=== PATIENT | female | born 1945 | race Caucasian/White ===

== ENCOUNTER 2018-11-22 08:35 | Inpatient (IN) ==
--- NOTE | 2018-10-25 15:59 | PAT Medication Instructions ---
Medication Instructions Date of Service October 25, 2018 Home Medications cholecalciferol (vitamin D3) 2,000 unit PO DAILY hydrocodone-acetaminophen [Vicodin] 1 - 2 tab PO UD PRN ibuprofen [Motrin IB] 400 mg PO UD PRN levothyroxine [Synthroid] 25 mcg PO QAM multivitamin [Multiple Vitamins] 1 tab PO DAILY omeprazole magnesium [Prilosec OTC] 20 mg PO UD PRN rosuvastatin [Crestor] 5 mg PO QAM ASK your surgeon for instructions ibuprofen [Motrin IB] 400 mg PO UD PRN DO NOT take the morning of surgery cholecalciferol (vitamin D3) 2,000 unit PO DAILY multivitamin [Multiple Vitamins] 1 tab PO DAILY Take morning of surgery With a small sip of water, OTHERWISE NOTHING TO EAT OR DRINK AFTER MIDNIGHT: hydrocodone-acetaminophen [Vicodin] 1 - 2 tab PO UD PRN (okay to take up to 4 hours prior to surgery if needed) levothyroxine [Synthroid] 25 mcg PO QAM omeprazole magnesium [Prilosec OTC] 20 mg PO UD PRN (if needed) rosuvastatin [Crestor] 5 mg PO QAM Other Notes If you have any questions please call us at [phone] or [phone] or [phone] or [phone]
--- NOTE | 2018-10-28 13:18 | Anesthesiology Consultation ---
Date of Service October 28, 2018 Assessment & Plan (1) Encounter for pre-operative examination: Plan: - PCP= 3/4= "proceed with upcoming surgery, pt is medically stable." Chart Review Chart Review: Acceptable Risk for Surgery and Patient seen in Pre Admission Testing Teaching & Discussion Pre-Anesthesia Teaching/Discussion Notes: Instructed NPO after midnight before surgery,except medications with 15 cc of water. Medication instructions provided according to the PAT guidelines. History Surgery Operation Date: 11/22/18 11:25 Proposed Procedures p Right Total Knee Arthroplasty - Eric Schumacher MD Height/Weight Height: 5 ft 4 in Weight: 69.6 kg Allergies Allergy/AdvReac Type Severity Reaction Status Date / Time cephalexin [From Keflex] Allergy Unknown Rash Verified 10/09/18 13:50 Medications Home Medications Medication Instructions Recorded Confirmed Last Taken cholecalciferol (vitamin D3) 2,000 unit PO DAILY 10/09/18 10/09/18 Unknown [Vitamin D3] hydrocodone-acetaminophen [Vicodin] 1 - 2 tab PO UD PRN 10/09/18 10/09/18 Unknown ibuprofen [Motrin IB] 400 mg PO UD PRN 10/09/18 10/09/18 Unknown levothyroxine [Synthroid] 25 mcg PO QAM 10/09/18 10/09/18 10/09/18 multivitamin [Multiple Vitamins] 1 tab PO DAILY 10/09/18 10/09/18 Unknown omeprazole magnesium [Prilosec OTC] 20 mg PO UD PRN 10/09/18 10/09/18 Unknown rosuvastatin [Crestor] 5 mg PO QAM 10/09/18 10/09/18 10/09/18 Past Medical History Medical History Heartburn DIET CONTROLLED; RARE PPI USE History of high blood pressure HX MEDS DISCONTINUED 2/2 GOOD HOME READING BP CONTROL; PCP MONITORING Hyperlipidemia Hypothyroidism Osteoarthritis Past Family History Family History Father Family history of prostate cancer Past Surgical History Surgical History History of appendectomy WITH REMOVAL OF FALLOP[place] TUBES History of cholecystectomy History of hysterectomy + OVARIES REMOVED Past Anesthesia History No Hx of Anesthesia Complications (EXCEPT PONV) and No Family Hx of Anesthesia Complications History of PONV Yes Motion Sickness Screening History of Motion Sickness: Yes (OCCASIONAL) Social History Smoking Status: Never smoker Do You Dip or Chew Tobacco: No Hx Alcohol Use: Yes (SUMMER) alcohol intake frequency: holidays/special occasions only Hx Substance Use: No substance use type: does not use Exercise / Class Metabolic Activity II 4-5 Yardwork/Stairs/Walk up hill Review of Systems Patient denies chest pain, shortness of breath, dyspnea on exertion, cough, wheezing, palpitations. Physical Exam Vital Signs VITALS BP 140/78 (BP 134/89 at PCP preop evaluation on 11/04) P 97 TEMP 98.5 SP02 97%RA RESP 18 PHYSICAL Full neck and c-spine range of motion. Full TMJ range of motion. TMD 3 finger breaths Mallampati Score 2 Dentition: upper front left capped tooth Lungs: clear throughout to auscultation Cardiac: regular rate and rhythm, no murmurs noted Spine: normal Carotid arteries: negative bruit Extremities: no edema Testing Electrocardiogram Date: 10/28/18 Findings: + NSR @ (79) Chest X-Ray Date: 10/28/18 Findings: + NAD Laboratory Results 10/28/18 13:34 10/28/18 13:34 Blood Type O Positive 10/28/18 13:34 Antibody Screen NEGATIVE 10/28/18 13:34 PT 10.8 Seconds (9.0-12.0) 10/28/18 13:34 INR 1.1 (0.9-1.1) 10/28/18 13:34 APTT 25.8 Seconds (21.0-31.0) 10/28/18 13:34 Hemoglobin A1c 5.6 % (4.5-5.6) 10/28/18 13:34 Urine Color Yellow 10/28/18 13:34 Urine Appearance Clear (Clear) 10/28/18 13:34 Urine pH 5.5 (4.5-7.5) 10/28/18 13:34 Ur Specific [place] 1.012 (1.000-1.030) 10/28/18 13:34 Urine Protein Negative (Negative) 10/28/18 13:34 Urine Glucose (UA) Negative (Negative) 10/28/18 13:34 Urine Ketones Negative (Negative) 10/28/18 13:34 Urine Nitrite Negative (Negative) 10/28/18 13:34 Ur Leukocyte Esterase Negative (Negative) 10/28/18 13:34 10/28/18 13:34 Urine Culture - Final Urine,Clean Catch Three types of organisms present, all low counts probable skin addie. No further identifications or sensitivities to follow. Glucose 165 on preop labs --> HGA1C 5.6%.*
--- NOTE | 2018-10-28 14:01 | XRay Report ---
XR chest Pre-admission PA/Lat CLINICAL HISTORY: pat preoperative evaluation COMPARISON STUDY: No previous studies for comparison. FINDINGS: The bones soft tissues and hemidiaphragms are normal. The cardiomediastinal silhouette is n ormal. The lungs are clear. The pulmonary vasculature is normal. IMPRESSION: Negative chest. The above report was generated using voice recognition software. It may contain grammatical, syntax or spelling errors. Electronically signed by: Pradip Hudson M.D. 10/28/2018 1:59 PM
[2018-10-28 14:41] LABS: Basophils # (auto) 0.02 K/uL (0-0.2); Basophils % (auto) 0.5 %; Eosinophils # (auto) 0.11 K/uL (0-0.5); Eosinophils % (auto) 2.5 %; Hemoglobin 14.8 g/dL (12.0-16.0); Immature Granulocytes # (auto) 0.01 K/uL (0.00-0.02); Immature Granulocytes % (auto) 0.2 %; Lymphocytes # (auto) 1.47 K/uL (1.2-3.4); Lymphocytes % (auto) 33.6 %; Mean Corpuscular Hgb Conc 34.4 g/dL (32-36); Mean Corpuscular Volume 90.5 fL (80-100); Mean Platelet Volume 9.9 fL (7.4-10.4); Monocytes % (auto) 9.1 %; Neutrophils # (auto) 2.37 K/uL (1.4-6.5); Neutrophils % (auto) 54.1 %; Platelet Count 261 K/uL (130-400); RDW Coefficient of Variation 12.3 % (11.5-14.5); RDW Standard Deviation 40.7 fL (36.4-46.3); Red Blood Count 4.75 M/uL (4.2-5.4); White Blood Count 4.38 K/uL (4.8-10.8)
[2018-10-28 14:50] LABS: Estimated Average Glucose 114 mg/dl; Hemoglobin A1C 5.6 % (4.5-5.6)
[2018-10-28 14:51] LABS: INR 1.1 (0.9-1.1); Partial Thromboplastin Time 25.8 Seconds (21.0-31.0); Prothrombin Time 10.8 Seconds (9.0-12.0)
[2018-10-28 14:55] LABS: Appearance Urine Clear (Clear); Bilirubin Urine Negative (Negative); Blood Urine Negative (Negative); Color Urine Yellow; Glucose Urine UA Negative (Negative); Ketones Urine Negative (Negative); Leukocyte Esterase Urine Negative (Negative); Nitrite Urine Negative (Negative); Protein Urine Negative (Negative); Specific Gravity Urine 1.012 (1.000-1.030); Urobilinogen Urine Negative (Negative); pH Urine 5.5 (4.5-7.5)
[2018-10-28 15:04] LABS: Albumin Level 3.7 gm/dl (3.4-5.0); BUN Creatinine Ratio 10.2 (10-20); Calcium 8.9 mg/dl (8.5-10.1); Creatinine Clr Calc Pharmacy 47.1 ml/min; Est GFR (African American) 61.9; Est GFR (Non-African American) 53.4; Potassium 3.6 mmol/L (3.5-5.1)
--- NOTE | 2018-11-17 19:03 | History & Physical Report ---
Date of Service November 17, 2018 Assessment & Plan (1) Osteoarthritis of right knee: Patient has failed conservative measures. Treatment options were discussed and they would like to proceed with scheduled surgery. Risks, benefits and alternatives to surgery including but not limited to infection, DVT, pain, stiffness, need for revision surgery, damage to blood vessels, damage to nerves, PE, , were discussed with the patient and they wish to proceed. Plan will be for right total knee arthroplasty. All questions were answered. Plan will be for patient to participate in outpatient physical therapy upon discharge. We will do aspirin 81mg BID x 30 days for DVT prophylaxis post operatively. Surgery is scheduled for 11/22/18. History of Present Illness Chief Complaint: Right knee pain Primary Care Provider: Jeffrey Combs 73 year old female with PMHx significant for high cholesterol and hypothyroidism presents with complaint of chronic right knee pain. She has failed conservative measures including cortisone injection, PT, and NSAIDs. She is having difficulty going about her normal daily activities. She would like to proceed with right knee replacement. Patient denies headaches, sweats, fevers, chills, double vision, blurred vision, cough, sore throat, dysphagia, chest pain, sob, wheezing, n/v/d/c, numbness, tingling, fatigue, urinary symptoms, mood disorders. ROS positive for right knee pain and stiffness. Allergies Allergy/AdvReac Type Severity Reaction Status Date / Time cephalexin [From Keflex] Allergy Unknown Rash Verified 10/09/18 13:50 Home Medications Home Medications Medication Instructions Recorded Confirmed Type cholecalciferol (vitamin D3) 2,000 unit PO DAILY 10/09/18 10/09/18 History [Vitamin D3] hydrocodone-acetaminophen [Vicodin] 1 - 2 tab PO UD PRN 10/09/18 10/09/18 History ibuprofen [Motrin IB] 400 mg PO UD PRN 10/09/18 10/09/18 History levothyroxine [Synthroid] 25 mcg PO QAM 10/09/18 10/09/18 History multivitamin [Multiple Vitamins] 1 tab PO DAILY 10/09/18 10/09/18 History omeprazole magnesium [Prilosec OTC] 20 mg PO UD PRN 10/09/18 10/09/18 History rosuvastatin [Crestor] 5 mg PO QAM 10/09/18 10/09/18 History Past Med/Surg History Medical History Heartburn DIET CONTROLLED; RARE PPI USE History of high blood pressure HX MEDS DISCONTINUED 2/2 GOOD HOME READING BP CONTROL; PCP MONITORING Hyperlipidemia Hypothyroidism Osteoarthritis Surgical History History of appendectomy WITH REMOVAL OF FALLOPIAN TUBES History of cholecystectomy History of hysterectomy + OVARIES REMOVED Family History Father Family history of prostate cancer Social History Preferred Language: Kenyan Communication Ability: Effective 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 Beliefs That Will Affect Care: None Current Living Situation: Spouse Other Information That Helps Us Care for You: No Feels Safe at Home: Yes Smoking Status: Never smoker Hx Alcohol Use: Yes (SUMMER) Hx Substance Use: No Review of Systems All systems reviewed & are unremarkable except as noted in HPI & below Physical Exam Vital Signs (Past 24 Hours): 5"4, 152lbs, BP 126/74 Constitutional: well developed and well nourished; no acute distress Eyes: PERRL, conjunctivae normal, anicteric sclerae ENMT: external ear and nose normal, oropharynx normal Neck: trachea midline, no thyromegaly Respiratory: normal respiratory effort, lungs clear to auscultation Cardiovascular: RRR, no murmur, no edema Musculoskeletal: Right knee-medial joint line tenderness, ROM 0-130 degrees with crepitus, stable to valgus and varus stress tests. Skin: no rashes, warm and dry Neurologic: patellar DTR's 2+ bilat, sensation intact Psychiatric: A+Ox3, euthymic affect Results & Data Laboratory Results Lab Results 10/28/18 10/28/18 10/28/18 Range/Units 13:34 13:34 13:34 WBC 4.38 L (4.8-10.8) K/uL RBC 4.75 (4.2-5.4) M/uL Hgb 14.8 (12.0-16.0) g/dL Hct 43.0 (37-47) % MCV 90.5 (80-100) fL MCH 31.2 (25-34) pg MCHC 34.4 (32-36) g/dL RDW Std Deviation 40.7 (36.4-46.3) fL RDW Coeff of Rowdy 12.3 (11.5-14.5) % Plt Count 261 (130-400) K/uL MPV 9.9 (7.4-10.4) fL Immature Gran % (Auto) 0.2 % Neut % (Auto) 54.1 % Lymph % (Auto) 33.6 % [place] % (Auto) 9.1 % Eos % (Auto) 2.5 % Baso % (Auto) 0.5 % Immature Gran # (Auto) 0.01 (0.00-0.02) K/uL Neut # (Auto) 2.37 (1.4-6.5) K/uL Lymph # (Auto) 1.47 (1.2-3.4) K/uL [place] # (Auto) 0.40 (0.11-0.59) K/uL Eos # (Auto) 0.11 (0-0.5) K/uL Baso # (Auto) 0.02 (0-0.2) K/uL PT 10.8 (9.0-12.0) Seconds INR 1.1 (0.9-1.1) APTT 25.8 (21.0-31.0) Seconds PTT Ratio 1.0 Sodium (136-145) mmol/L Potassium (3.5-5.1) mmol/L Chloride (98-107) mmol/L Carbon Dioxide (21-32) mmol/L Anion Gap (3-11) BUN (7-18) mg/dl Creatinine (0.6-1.2) mg/dl Est Cr Clr Drug Dosing ml/min Est GFR ( Amer) Est GFR (Non-Af Amer) BUN/Creatinine Ratio (10-20) Glucose (70-99) mg/dl Estimat Average Glucose mg/dl Hemoglobin A1c (4.5-5.6) % Calcium (8.5-10.1) mg/dl Albumin (3.4-5.0) gm/dl Urine Color Yellow Urine Appearance Clear (Clear) Urine pH 5.5 (4.5-7.5) Ur Specific [place] 1.012 (1.000-1.030) Urine Protein Negative (Negative) Urine Glucose (UA) Negative (Negative) Urine Ketones Negative (Negative) Urine Blood Negative (Negative) Urine Nitrite Negative (Negative) Urine Bilirubin Negative (Negative) Urine Urobilinogen Negative (Negative) Ur Leukocyte Esterase Negative (Negative) Blood Type Antibody Screen 10/28/18 10/28/18 10/28/18 Range/Units 13:34 13:34 13:34 WBC (4.8-10.8) K/uL RBC (4.2-5.4) M/uL Hgb (12.0-16.0) g/dL Hct (37-47) % MCV (80-100) fL MCH (25-34) pg MCHC (32-36) g/dL RDW Std Deviation (36.4-46.3) fL RDW Coeff of Rowdy (11.5-14.5) % Plt Count (130-400) K/uL MPV (7.4-10.4) fL Immature Gran % (Auto) % Neut % (Auto) % Lymph % (Auto) % [place] % (Auto) % Eos % (Auto) % Baso % (Auto) % Immature Gran # (Auto) (0.00-0.02) K/uL Neut # (Auto) (1.4-6.5) K/uL Lymph # (Auto) (1.2-3.4) K/uL [place] # (Auto) (0.11-0.59) K/uL Eos # (Auto) (0-0.5) K/uL Baso # (Auto) (0-0.2) K/uL PT (9.0-12.0) Seconds INR (0.9-1.1) APTT (21.0-31.0) Seconds PTT Ratio Sodium 140 (136-145) mmol/L Potassium 3.6 (3.5-5.1) mmol/L Chloride 107 (98-107) mmol/L Carbon Dioxide 24 (21-32) mmol/L Anion Gap 9.0 (3-11) BUN 11 (7-18) mg/dl Creatinine 1.05 (0.6-1.2) mg/dl Est Cr Clr Drug Dosing 47.1 ml/min Est GFR ( Amer) 61.9 Est GFR (Non-Af Amer) 53.4 BUN/Creatinine Ratio 10.2 (10-20) Glucose 165 H (70-99) mg/dl Estimat Average Glucose 114 mg/dl Hemoglobin A1c 5.6 (4.5-5.6) % Calcium 8.9 (8.5-10.1) mg/dl Albumin 3.7 (3.4-5.0) gm/dl Urine Color Urine Appearance (Clear) Urine pH (4.5-7.5) Ur Specific [place] (1.000-1.030) Urine Protein (Negative) Urine Glucose (UA) (Negative) Urine Ketones (Negative) Urine Blood (Negative) Urine Nitrite (Negative) Urine Bilirubin (Negative) Urine Urobilinogen (Negative) Ur Leukocyte Esterase (Negative) Blood Type O Positive Antibody Screen NEGATIVE Diagnostic Findings Right [id number] medial compartment with periarticular osteophtye formation.
[~2018-11-22 08:35] MED LIST: ACETAMINOPHEN 500 MG TAB PO SCH; BUPIVACAINE 0.5 % 5 MG/1 ML PF 10ML VIAL ONE; CEFAZOLIN 2000MG 2,000 MG/15 ML SYR IV SCH; CeleBREX 200 MG CAP PO SCH; FAMOTIDINE 20 MG TAB PO SCH; LR 500ML BOLUS, THEN 15ML/HR IV SCH; METOCLOPRAMIDE HCL 10 MG TABLET PO SCH; ROPIVACAINE 0.5% 5 MG/ML 30 ML VIAL ONE; ROPIVACAINE 0.5% HCL/PF 150 MG, BUPIVACAINE 0.5% MPF 30 ML, EPINEPHrine 30MG/30ML (OR U... INFIL SCH; TRANEXAMIC ACID 1,000 MG **IV Intra-op IV SCH; TRANEXAMIC ACID 1,000 MG **IV Pre-op IV SCH; dexAMETHasone 4 MG TAB PO SCH
--- NOTE | 2018-11-22 10:02 | History & Physical Bridge Note ---
Date of Service November 22, 2018 History & Physical Bridge Note I have examined the patient, reviewed the History & Physical and in the interval since the performance of the History & Physical I have noted the following changes of clinical significance: no changes noted
[2018-11-22] MEDS ORDERED: ATROPINE SULFATE 0.1 MG/ML 10ML SYR IV PRN (10:09)
[2018-11-22] MEDS ORDERED: ePHEDrine sulfate 50 MG/ML AMP IV PRN (10:09)
[2018-11-22] MEDS ORDERED: PROPOFOL IV EMULSION 10 MG/ML 20 ML VIAL IV ONE (10:33)
[2018-11-22] MEDS ORDERED: MIDAZOLAM HCL 1 MG/ML 2ML VIAL ONE (10:33)
[2018-11-22] MEDS ORDERED: fentaNYL citrate 100 MCG/2 ML VIAL ONE (10:33)
[2018-11-22] MEDS ORDERED: VANCOMYCIN CONSULT ACTIVE PRN ×2 (10:36→13:58)
[2018-11-22] MEDS ORDERED: VANCOMYCIN HCL 1 GM/270 ML BAG ONE (10:38)
[2018-11-22] MEDS ORDERED: BACITRACIN INJ 50,000 UNIT VIAL ONE (11:54)
[2018-11-22] MEDS ORDERED: ORTHO JOINT ANESTHETIC ONE (11:54)
[2018-11-22] MEDS ORDERED: POVIDONE-IODINE OP SOLN 30 ML BTL ONE (11:54)
--- NOTE | 2018-11-22 13:14 | Operative Report ---
Post Operative Report Pre & Post Diagnosis Operation Date: 11/22/18 11:20 Pre-Op Diagnosis: Right knee osteoarthritis Post-Op Diagnosis: Right knee osteoarthritis Procedure Operation Date: 11/22/18 11:20 Actual Procedures p Right Total Knee Arthroplasty(Right) - Eric Schumacher MD Surgeon Eric Schumacher MD [employer] Commerce Developer Oracio Martinez PA-C Estimated Blood Loss 20 Findings Consistent with Post-Op Diagnosis Specimens Bone and tissue Drains 2 Hemovac Anesthesia Type Spinal MAC Complications none Disposition Accompanied Patient To Recovery: No Disposition: Recovery Room Indications Patient is a 73-year-old female long-standing arthritis of the right knee. She has significant joint space narrowing the medial compartment is near [id number]. She is failed conservative measures including injection, anti- inflammatories, rehab. She was to proceed with a right total knee arthroplasty. Description of Procedure Risks benefits and alternatives of surgery including but not limited to infection, DVT, pain, stiffness, need for surgery, damage to blood vessels, damage to nerves or risks of anesthesia were discussed with the patient and they wished to proceed. The patient was identified and the laterality was confirmed and marked. They received a preoperative antibiotic as well as a spinal anesthetic and an abductor canal block. A well-padded tourniquet was applied and then the limb was prepped and draped in standard manner with ChloraPrep. The limb was exsanguinated and the tourniquet was inflated. I made a standard anterior incision. I sharply incised the skin then utilized Bovie electrocautery to achieve hemostasis. I made a medial parapatellar arthrotomy and mobilized the patella laterally. I then excised the anterior horns of the medial and lateral meniscus as well as the infrapatellar fat pad. I elevated a portion of the MCL off of the tibia. I then pinned into place a patient-matched distal femoral cutting guide and made my distal femoral resection. I then pinned into place the 5 in 1 femoral cutting guide. I made my anterior, posterior and chamfer cuts. I then excised the cruciates an d the remaining portions of the menisci. I then pinned into place a patient- matched tibial cutting guide and made my tibial resection. I then pinned into place the tibial plate a utilizing alignment mary to confirm rotation. I then cut for the post. Utilizing a lamina progressive care unit registered nurse and I then removed posterior osteophytes off the femur. I then placed a trial femur into position and cut for the trochlear component. I then sequentially trialed to size the polyethylene until there was good soft tissue balancing and range of motion. I then prepared the patella with a freehand cut utilizing sagittal saw. I sized and drilled for the patella. There was good tracking to the patella no lateral release was needed. All the trial components were removed. The deep tissues were anesthetized with an ortho mix solution. Then with Simplex HV with gentamicin cement, I cemented my definitive components. Definitive components, Hart and Nephew Saraney 2: Femur 5 Tibia 3 Poly 9 Patella 29 oval A betadine soak was performed. A deep drain was placed. The arthrotomy was closed with interrupted #1 Vicryl suture subcutaneous tissue was closed with interrupted 2-0 Vicryl suture. The skin was closed with with teresita. An Acticoat and Jany dressing were placed. Sterile dressings were applied. All needle and sponge counts were correct at the end of the procedure patient was transferred to the PACU in stable condition without apparent complication. The PA-C was necessary for assistance with procedure for assistance in positioning, prepping, draping, retraction and closure. I attest to the content of the Intraoperative Record and any orders documented therein. Any exceptions are noted below.
[2018-11-22] MEDS ORDERED: MAGNESIUM HYDROXIDE SUSP 30 ML UDC PO PRN (13:58)
[2018-11-22] MEDS ORDERED: NALOXONE HCL 0.4 MG/1 ML VIAL/CARP IV PRN (13:58)
[2018-11-22] MEDS ORDERED: ONDANSETRON INJ 2 MG/ML 2 ML VIAL IV PRN (13:58)
[2018-11-22] MEDS ORDERED: BISACODYL 10 MG SUPP PR PRN (13:58)
--- NOTE | 2018-11-22 14:20 | Anesthesiology Progress Note ---
Date of Service November 22, 2018 Anesthesia Post Procedure Vital Signs Vital Signs: Temp Pulse Pulse Resp BP Pulse Ox 11/22/18 14:15 87 18 120/75 93 11/22/18 14:05 85 20 111/76 99 11/22/18 13:56 37.3 C 90 15 124/77 99 11/22/18 11:56 74 117/71 100 11/22/18 11:53 73 122/74 100 11/22/18 08:58 36.9 C 85 18 163/103 H 95 Notes Mental Status: alert / awake / arousable and participated in evaluation Nausea / Vomiting: adequately controlled Pain: adequately controlled Airway Patency, RR, SpO2: stable & adequate BP & HR: stable & adequate Hydration State: stable & adequate Neuraxial Anesthesia: was administered and sensory block is resolving Anesthetic Complications: no major complications apparent
--- NOTE | 2018-11-22 14:37 | XRay Report ---
XR knee RT 2V routine CLINICAL HISTORY: Surgical Post Op COMPARISON: None. DISCUSSION: Anatomic alignment post total right knee arthroplasty. Good contact between prosthetic an d underlying bone. Expected soft tissue postoperative change. IMPRESSION: Anatomic alignment post total right knee arthroplasty. The above report was generated using voice recognition software. It may contain grammatical, syntax or spelling errors. Electronically signed by: Pradip Hudson M.D. 11/22/2018 2:35 PM
[2018-11-22] MEDS ORDERED: SODIUM CHLORIDE 0.9% 1000ML 1,000 ML IV SCH (15:00)
[2018-11-22] MEDS: ACETAMINOPHEN 500 MG TAB PO SCH ×2 (15:54→20:51)
[2018-11-22] MEDS: OXYCODONE HCL IR 5 MG TAB (IMMEDIATE RELEASE) PO PRN ×2 (18:37→23:57)
[2018-11-22] MEDS: DOCUSATE SODIUM 100 MG CAP PO SCH (20:51)
[2018-11-22] MEDS: ASPIRIN 81 MG ECTAB PO SCH (20:51)
[2018-11-22] MEDS: CeleBREX 200 MG CAP PO SCH (20:51)
[2018-11-22] MEDS: SENNA 8.6 MG TAB PO SCH (20:51)
[2018-11-22] MEDS: VANCOMYCIN HCL 1,000 MG in SODIUM CHLORIDE 0.9% 250 ML IV SCH (21:31)
[2018-11-23] MEDS ORDERED: VANCOMYCIN HCL 1,000 MG/270 ML BAG IV SCH (06:00)
[2018-11-23] MEDS: METOCLOPRAMIDE HCL INJ 5 MG/ML 2 ML VIAL IV PRN ×2 (06:41→12:45)
[2018-11-23 06:57] LABS: Hematocrit (blood only) 36.9 % (37-47); Mean Corpuscular Hgb Conc 35.2 g/dL (32-36); Mean Corpuscular Volume 89.3 fL (80-100); Mean Platelet Volume 9.6 fL (7.4-10.4); Platelet Count 227 K/uL (130-400); RDW Coefficient of Variation 12.4 % (11.5-14.5); RDW Standard Deviation 39.8 fL (36.4-46.3); Red Blood Count 4.13 M/uL (4.2-5.4); White Blood Count 15.53 K/uL (4.8-10.8)
[2018-11-23] MEDS: ACETAMINOPHEN 500 MG TAB PO SCH ×3 (07:16→20:34)
[2018-11-23] MEDS: LEVOTHYROXINE SODIUM 25 MCG TABLET PO SCH (07:17)
[2018-11-23 07:38] LABS: BUN Creatinine Ratio 21.3 (10-20); Calcium 8.5 mg/dl (8.5-10.1); Creatinine Clr Calc Pharmacy 46.4 ml/min; Est GFR (African American) 61.2; Est GFR (Non-African American) 52.8
[2018-11-23] MEDS: PANTOprazole 40 MG TAB PO PRN (08:22)
[2018-11-23] MEDS ORDERED: MULTIVITAMIN TAB PO SCH (09:00)
--- NOTE | 2018-11-23 09:13 | Orthopedic Progress Note ---
Date of Service November 23, 2018 Assessment & Plan (1) Osteoarthritis of right knee: POD #1, Right TKA PT/ OT DVT proph- ASA D/C planning- Home w HH likely tomorrow Appreciate medicine input. Subjective POd #1, Had some nausea overnight with her pain med dose, feeling better this AM. Denies sob, cp. Pain controlled well. Physical Exam Vital Signs (Past 24 Hours): Last Vital Signs Temp 36.6 C 11/23/18 07:11 Pulse 80 11/23/18 07:11 Resp 16 11/23/18 07:11 BP 121/68 11/23/18 07:11 Pulse Ox 97 11/23/18 07:11 Physical Exam: Right knee dressings c/d/i, no drainage, no calf tenderness, toes and ankle mobile, A&Ox3.
[2018-11-23] MEDS: CeleBREX 200 MG CAP PO SCH ×2 (09:29→20:34)
[2018-11-23] MEDS: ASPIRIN 81 MG ECTAB PO SCH ×2 (09:29→20:33)
[2018-11-23] MEDS: DOCUSATE SODIUM 100 MG CAP PO SCH ×2 (09:30→20:33)
[2018-11-23] MEDS: ROSUVASTATIN CALCIUM 5 MG TAB PO SCH (09:30)
[2018-11-23] MEDS: CHOLECALCIFEROL 1,000 UNITS TAB PO SCH (09:31)
[2018-11-23] MEDS: MULTIVITAMIN TAB PO SCH (09:31)
[2018-11-23] MEDS: VANCOMYCIN HCL 1,000 MG in SODIUM CHLORIDE 0.9% 250 ML IV SCH (10:30)
--- NOTE | 2018-11-23 13:27 | Anesthesiology Progress Note ---
Date of Service November 23, 2018 Anesthesia Post Procedure Vital Signs Vital Signs: Temp Pulse Pulse Pulse Resp BP BP 11/23/18 10:48 36.9 C 79 16 121/71 11/23/18 07:11 36.6 C 80 16 121/68 11/23/18 03:17 36.6 C 82 14 124/73 11/22/18 23:37 36.9 C 82 14 116/71 11/22/18 17:44 37.1 C 76 16 143/82 H 11/22/18 16:45 37.1 C 77 16 127/77 11/22/18 15:46 36.8 C 74 16 122/73 11/22/18 15:24 36.5 C 75 16 125/78 11/22/18 14:45 36.7 C 79 16 124/78 11/22/18 14:26 37.5 C 87 18 114/72 11/22/18 14:15 87 18 120/75 11/22/18 14:05 85 20 111/76 11/22/18 13:56 37.3 C 90 15 124/77 Pulse Ox 11/23/18 10:48 97 11/23/18 07:11 97 11/23/18 03:17 93 11/22/18 23:37 93 11/22/18 17:44 96 11/22/18 16:45 94 11/22/18 15:46 93 11/22/18 15:24 93 11/22/18 14:45 94 11/22/18 14:26 93 11/22/18 14:15 93 11/22/18 14:05 99 11/22/18 13:56 99 Pain Intensity Right Knee: Pain Intensity: 6 Notes Mental Status: alert / awake / arousable Patient Amnestic to Procedure: Yes Nausea / Vomiting: adequately controlled Pain: adequately controlled Airway Patency, RR, SpO2: stable & adequate BP & HR: stable & adequate Hydration State: stable & adequate Neuraxial Anesthesia: was administered and sensory block resolved Anesthetic Complications: no major complications apparent and Pt Satisfied with anesthetic care
[2018-11-23] MEDS: HYDROmorphone INJ 0.5 MG/0.5 ML SYR IV PRN ×2 (14:40→20:33)
[2018-11-23] MEDS: SENNA 8.6 MG TAB PO SCH (20:34)
[2018-11-24] MEDS: METOCLOPRAMIDE HCL INJ 5 MG/ML 2 ML VIAL IV PRN ×4 (00:38→21:01)
[2018-11-24] MEDS: HYDROmorphone INJ 0.5 MG/0.5 ML SYR IV PRN ×3 (00:38→22:11)
[2018-11-24] MEDS: ACETAMINOPHEN 500 MG TAB PO SCH ×3 (05:34→21:07)
[2018-11-24] MEDS: LEVOTHYROXINE SODIUM 25 MCG TABLET PO SCH (05:34)
[2018-11-24] MEDS: CHOLECALCIFEROL 1,000 UNITS TAB PO SCH (08:23)
[2018-11-24] MEDS: MULTIVITAMIN TAB PO SCH (08:23)
[2018-11-24] MEDS: DOCUSATE SODIUM 100 MG CAP PO SCH ×2 (08:25→21:06)
[2018-11-24] MEDS: ROSUVASTATIN CALCIUM 5 MG TAB PO SCH (08:25)
--- NOTE | 2018-11-24 08:50 | Orthopedic Progress Note ---
Date of Service November 24, 2018 Assessment & Plan (1) Osteoarthritis of right knee: POD #2, Right TKA PT/ OT DVT proph- ASA D/C planning- Home w HH Appreciate medicine input. Will stop narcs and add tramadol, patient states she is tolerating the IV dilaudid with reglan. Subjective POd #2, Still having nausea becoming worse, aversion to eating at this point. Denies sob, cp. Pain controlled well. Physical Exam Vital Signs (Past 24 Hours): Last Vital Signs Temp 36.7 C 11/24/18 07:11 Pulse 76 11/24/18 07:11 Resp 16 11/24/18 07:11 BP 126/76 11/24/18 07:11 Pulse Ox 94 11/24/18 07:11 Physical Exam: VSS. Right knee wound vac in tact. No drainage, no erythema. No calf tenderness. Toes and ankle mobile, A&Ox3.
[2018-11-24] MEDS ORDERED: TRAMADOL HCL 50 MG TABLET PO PRN (08:52)
[2018-11-24] MEDS: ASPIRIN 81 MG ECTAB PO SCH ×2 (09:38→21:04)
[2018-11-24] MEDS: CeleBREX 200 MG CAP PO SCH ×2 (09:39→21:06)
[2018-11-24] MEDS: PANTOprazole 40 MG TAB PO PRN (19:26)
[2018-11-24] MEDS: SENNA 8.6 MG TAB PO SCH (21:07)
[2018-11-24] MEDS ORDERED: PROMETHAZINE HCL 25 MG in SODIUM CHLORIDE 0.9% 50 ML IV STA (22:59)
[2018-11-24] MEDS ORDERED: PROMETHAZINE HCL 25 MG TAB PO PRN (23:00)
[2018-11-25] MEDS: HYDROmorphone INJ 0.5 MG/0.5 ML SYR IV PRN (04:40)
[2018-11-25] MEDS: LEVOTHYROXINE SODIUM 25 MCG TABLET PO SCH (06:23)
[2018-11-25] MEDS: ACETAMINOPHEN 500 MG TAB PO SCH (06:23)
--- NOTE | 2018-11-25 07:28 | Orthopedic Progress Note ---
Date of Service November 25, 2018 Assessment & Plan (1) Osteoarthritis of right knee: POD #3, Right TKA PT/ OT DVT proph- ASA D/C planning- Home w HH later today if continues to feel well and PT goes well. Appreciate medicine input. Subjective POd #3, Nausea has improved significantly. Patient also had diarrhea yesterday which has resolved. Patient feels she may have had a stomach bug. Denies sob, cp. Pain controlled well. Physical Exam Vital Signs (Past 24 Hours): Last Vital Signs Temp 37.5 C 11/25/18 06:04 Pulse 101 H 11/25/18 07:06 Resp 14 11/25/18 06:04 BP 158/90 H 11/25/18 07:06 Pulse Ox 95 11/25/18 06:04 Physical Exam: Dressing/CRUZ c/d/i, no calf tenderness. Toes mobile, sensation and N/V status intact.
[2018-11-25] MEDS: CeleBREX 200 MG CAP PO SCH (07:31)
[2018-11-25] MEDS: DOCUSATE SODIUM 100 MG CAP PO SCH (07:31)
[2018-11-25] MEDS: CHOLECALCIFEROL 1,000 UNITS TAB PO SCH (07:32)
[2018-11-25] MEDS: MULTIVITAMIN TAB PO SCH (07:32)
[2018-11-25] MEDS: ROSUVASTATIN CALCIUM 5 MG TAB PO SCH (07:33)
[2018-11-25] MEDS: ASPIRIN 81 MG ECTAB PO SCH (07:33)
[2018-11-25 08:45] LABS: Hemoglobin 13.9 g/dL (12.0-16.0); Mean Corpuscular Hgb Conc 35.6 g/dL (32-36); Mean Corpuscular Volume 88.8 fL (80-100); Mean Platelet Volume 9.5 fL (7.4-10.4); Platelet Count 238 K/uL (130-400); RDW Coefficient of Variation 12.6 % (11.5-14.5); RDW Standard Deviation 40.6 fL (36.4-46.3); Red Blood Count 4.39 M/uL (4.2-5.4); White Blood Count 8.34 K/uL (4.8-10.8)
[2018-11-25 09:17] LABS: BUN Creatinine Ratio 10.2 (10-20); Calcium 9.2 mg/dl (8.5-10.1); Creatinine Clr Calc Pharmacy 53.5 ml/min; Est GFR (African American) 72.6; Est GFR (Non-African American) 62.6; Magnesium 1.7 mg/dl (1.8-2.4); Potassium 3.4 mmol/L (3.5-5.1)
[2018-11-25] MEDS ORDERED: POTASSIUM CHLORIDE 20 MEQ TABCR PO STA (09:39)
[2018-11-25] MEDS: MAGNESIUM SULFATE / D5W 1 GM/100 ML BAG IV SCH ×2 (10:02→10:03)
--- NOTE | 2018-11-25 10:06 | Hospitalist Consultation ---
Date of Consultation November 25, 2018 Assessment & Plan (1) Osteoarthritis of right knee: - S/p right TKA, POD#3. - Pain control per primary team. - PT/OT -- will be discharged with home health services today. - Asprin 81 mg BID. (2) Hyperlipidemia: - Continue Crestor as prescribed. (3) Hypertension: - H/o HTN, not currently being treated with anti-hypertensives. - BP was elevated during this admission. - Follows with PCP -- advised to follow up in 1-2 weeks. - Has blood pressure cuff at home -- will monitor. (4) Hypothyroidism: - Continue Synthroid 25 mcg daily as prescribed. - No recent TSH levels documented; can discuss with PCP. (5) CKD (chronic kidney disease) stage 3, GFR 30-59 ml/min: - Avoid nephrotoxic agents. - Was provided script for Celebrex at discharge -- will need to monitor renal function as outpatient. (6) Electrolyte abnormality: - Mag level 1.7 - ordered mag sulfate 2 gm IV. - K level 3.4 - ordered KCl 40 mEq PO. - Likely related to GI losses in setting of recent diarrhea/nausea. (7) DVT prophylaxis: - Aspirin 81 mg BID. Dispo: Will sign off. Will need to follow up with PCP in outpatient clinic. Supervising Physician Co-Signing Physician Notes PA Supervision Note: I did not personally see or examine the patient today, but I verified all macdonald points of MARCELLA Askew's assessment and plan with the following exceptions/additions: None Patient was discharged prior to me being able to see her. Of note, RN reports pt declined the Magnesium and potassium replacement MARCELLA Askew ordered prior to discharge History of Present Illness Reason for Consultation: Medical Management/Hypertension Attending Physician: Eric Schumacher MD History of Present Illness Mrs. Bardales is a 73 year old female with past medical history of GERD, HLD, Hypothroidism, Osteoarthritis who presented for a planned total right knee arthroplasty. She is POD#3 today. Pt. is feeling well overall. She did develop nausea/vomiting and diarrhea Sunday into Sunday. Symptoms are now completely resolved, tolerating PO intake. Denies chest pain, SOB, LE edema. Blood pressure has been elevated -- patient has h/o hypertension and follows with PCP for manag ement. Was previously on HCTZ, most recently 2-3 years ago. Plan for discharge with home health services this afternoon. Allergies Allergy/AdvReac Type Severity Reaction Status Date / Time cephalexin [From Keflex] Allergy Unknown Rash Verified 11/22/18 08:53 Home Medications Home Medications Medication Instructions Recorded Confirmed Type Prilosec OTC 20 mg PO UD PRN 10/09/18 11/22/18 History cholecalciferol (vitamin D3) 2,000 unit PO DAILY 10/09/18 11/22/18 History [Vitamin D3] levothyroxine [Synthroid] 25 mcg PO QAM 10/09/18 11/22/18 History multivitamin [Multiple Vitamins] 1 tab PO DAILY 10/09/18 11/22/18 History rosuvastatin [Crestor] 5 mg PO QAM 10/09/18 11/22/18 History acetaminophen [Pain Reliever] 1,000 mg PO Q8 #60 tab 11/25/18 Rx aspirin [Ecotrin Low Strength] 81 mg PO BID #60 tab 11/25/18 Rx celecoxib [Celebrex] 200 mg PO BID #60 cap 11/25/18 Rx oxycodone 5 - 10 mg PO .Q4H-6H PRN #30 cap 11/25/18 Rx MDD 6 promethazine 25 mg PO Q8H PRN #20 tab 11/25/18 Rx Patient History Medical History Heartburn DIET CONTROLLED; RARE PPI USE History of high blood pressure HX MEDS DISCONTINUED 2/2 [facility] HOME READING BP CONTROL; PCP MONITORING Hyperlipidemia Hypothyroidism Osteoarthritis Surgical History History of appendectomy WITH REMOVAL OF FALLOPIAN TUBES History of cholecystectomy History of hysterectomy + OVARIES REMOVED Family History Father Family history of prostate cancer Social History Preferred Language: Swedish Beliefs That Will Affect Care: None marital status: Current Living Situation: Spouse Other Information That Helps Us Care for You: No Feels Safe at Home: Yes Smoking Status: Never smoker Hx Alcohol Use: Yes (SUMMER) Hx Substance Use: No Review of Systems 12 point R.O.S. negative unless specified above Constitutional: no fever, no chills, no body aches, no fatigue, no weakness and no anorexia Eyes: no diplopia, not seeing flashes and no spots in vision Respiratory: no cough and no dyspnea Cardiovascular: no chest pain, no palpitations, no syncope and no edema Gastrointestinal: no abdominal pain, no nausea, no vomiting, no constipation and no diarrhea/loose stools Genitourinary (Female): no dysuria and no difficulty urinating Musculoskeletal: + joint pain (Right knee ) Integumentary: no new lesions Allergy / Immunological: no rash Physical Exam Vital Signs (Past 24 Hours): Last Vital Signs Temp 37.5 C 11/25/18 08:49 Pulse 87 11/25/18 08:49 Resp 14 11/25/18 08:49 BP 116/71 11/25/18 08:49 Pulse Ox 95 11/25/18 08:49 Physical Exam: General: Resting comfortably in no apparent distress; A&OX3 HEENT: NC/AT; PERRLA with EOMI; [place] conjunctiva, MMM. Neck: Supple and nontender Cardiac: RRR Lungs: CTA bilaterally Abdomen: Bowel normoactive X 4; Nontender to palpation Extremities: Warm. No edema present. Right knee with dressing in place. Neuro: No focal weakness Skin: No rash Results & Data Laboratory Results 11/25/18 11/25/18 Range/Units 08:25 08:25 WBC 8.34 (4.8-10.8) K/uL RBC 4.39 (4.2-5.4) M/uL Hgb 13.9 (12.0-16.0) g/dL Hct 39.0 (37-47) % MCV 88.8 (80-100) fL MCH 31.7 (25-34) pg MCHC 35.6 (32-36) g/dL RDW Std Deviation 40.6 (36.4-46.3) fL RDW Coeff of Rowdy 12.6 (11.5-14.5) % Plt Count 238 (130-400) K/uL MPV 9.5 (7.4-10.4) fL Sodium 137 (136-145) mmol/L Potassium 3.4 L (3.5-5.1) mmol/L Chloride 103 (98-107) mmol/L Carbon Dioxide 27 (21-32) mmol/L Anion Gap 6.0 (3-11) BUN 9 (7-18) mg/dl Creatinine 0.92 (0.6-1.2) mg/dl Est Cr Clr Drug Dosing 53.5 ml/min Est GFR ( Amer) 72.6 Est GFR (Non-Af Amer) 62.6 BUN/Creatinine Ratio 10.2 (10-20) Glucose 150 H (70-99) mg/dl Calcium 9.2 (8.5-10.1) mg/dl Magnesium 1.7 L (1.8-2.4) mg/dl
--- NOTE | 2018-11-26 07:15 | Discharge Summary ---
Date of Service November 27, 2018 Admission HPI Per Admitting Provider 73 year old female with PMHx significant for high cholesterol and hypothyroidism presents with complaint of chronic right knee pain. She has failed conservative measures including cortisone injection, PT, and NSAIDs. She is having difficulty going about her normal daily activities. She would like to proceed with right knee replacement. Patient denies headaches, sweats, fevers, chills, double vision, blurred vision, cough, sore throat, dysphagia, chest pain, sob, wheezing, n/v/d/c, numbness, tingling, fatigue, urinary symptoms, mood disorders. ROS positive for right knee pain and stiffness. Discharge Data Consultations 11/22/18 13:58 Consult Case Management - Discharge Planning Routine 11/24/18 23:04 Consult Hospitalist Routine Procedures Performed Operation Date: 11/22/18 11:20 Actual Procedures p Right Total Knee Arthroplasty(Right) - Eric Schumacher MD
--- NOTE | 2018-11-26 07:22 | Discharge Summary ---
Date of Service November 26, 2018 Admission HPI Per Admitting Provider 73 year old female with PMHx significant for high cholesterol and hypothyroidism presents with complaint of chronic right knee pain. She has failed conservative measures including cortisone injection, PT, and NSAIDs. She is having difficulty going about her normal daily activities. She would like to proceed with right knee replacement. Patient denies headaches, sweats, fevers, chills, double vision, blurred vision, cough, sore throat, dysphagia, chest pain, sob, wheezing, n/v/d/c, numbness, tingling, fatigue, urinary symptoms, mood disorders. ROS positive for right knee pain and stiffness. Admission Exam Per Admitting Provider Vital Signs (Past 24 Hours): 5"4, 152lbs, BP 126/74 Constitutional: well developed and well nourished; no acute distress Eyes: PERRL, conjunctivae normal, anicteric sclerae ENMT: external ear and nose normal, oropharynx normal Neck: trachea midline, no thyromegaly Respiratory: normal respiratory effort, lungs clear to auscultation Cardiovascular: RRR, no murmur, no edema Musculoskeletal: Right knee-medial joint line tenderness, ROM 0-130 degrees with crepitus, stable to valgus and varus stress tests. Skin: no rashes, warm and dry Neurologic: patellar DTR's 2+ bilat, sensation intact Psychiatric: A+Ox3, euthymic affect Principal Diagnosis Right knee osteoarthritis -Nausea, diarrhea Discharge Exam Constitutional well developed and well nourished; no acute distress Eyes PERRL, conjunctivae normal, anicteric sclerae ENMT external ear and nose normal, oropharynx normal Neck trachea midline, no thyromegaly Respiratory normal respiratory effort, lungs clear to auscultation Cardiovascular RRR, no murmur, no edema Skin no rashes, warm and dry Neurologic patellar DTR's 2+ bilat, sensation intact Psychiatric A+Ox3, euthymic affect Discharge Data Allergies Allergy/AdvReac Type Severity Reaction Status Date / Time cephalexin [From Keflex] Allergy Unknown Rash Verified 11/22/18 08:53 Consultations 11/22/18 13:58 Consult Case Management - Discharge Planning Routine 11/24/18 23:04 Consult Hospitalist Routine Procedures Performed Operation Date: 11/22/18 11:20 Actual Procedures p Right Total Knee Arthroplasty(Right) - Eric Schumacher MD Ordered Studies 11/22/18 05:00 US - OR guided needle placemen Routine Hospital Course (1) Osteoarthritis of right knee: Patient presented for same day admission following right total knee arthroplasty on 11/22/18. She tolerated procedure well. The Patient had an uneventful hospital course, other than nausea and diarrhea. Nas[place] started on POD#1 and developed several episodes of diarrhea on POD#2. The oxycodone was d/c but nausea persisted. She did get some relief from anti-nausea medications. On POD#3 her symptoms had resolved. Post-operatively, her activity was progressed and well tolerated. They participated in PT with ambulation distance of 325 feet. ROM of operative knee reached 98 degrees. Labs remained stable- lowest hemoglobin recorded: 13. Dr. Aditi Bach of medical service was consulted for medical management during admission due to her persistent nausea. Pain controlled on oral medications. Please refer to daily progress notes and PT notes for complete details. After exam on 11/25/18, patient was felt to be stable for discharge home with home health services. Patient will f/u in the office in about 2 weeks for further evaluation including x-rays and incision check, sooner if having any issues or concerns. Lab Results 10/28/18 10/28/18 10/28/18 Range/Units 13:34 13:34 13:34 WBC 4.38 L (4.8-10.8) K/uL RBC 4.75 (4.2-5.4) M/uL Hgb 14.8 (12.0-16.0) g/dL Hct 43.0 (37-47) % MCV 90.5 (80-100) fL MCH 31.2 (25-34) pg MCHC 34.4 (32-36) g/dL RDW Std Deviation 40.7 (36.4-46.3) fL RDW Coeff of Rowdy 12.3 (11.5-14.5) % Plt Count 261 (130-400) K/uL MPV 9.9 (7.4-10.4) fL Immature Gran % (Auto) 0.2 % Neut % (Auto) 54.1 % Lymph % (Auto) 33.6 % [place] % (Auto) 9.1 % Eos % (Auto) 2.5 % Baso % (Auto) 0.5 % Immature Gran # (Auto) 0.01 (0.00-0.02) K/uL Neut # (Auto) 2.37 (1.4-6.5) K/uL Lymph # (Auto) 1.47 (1.2-3.4) K/uL [place] # (Auto) 0.40 (0.11-0.59) K/uL Eos # (Auto) 0.11 (0-0.5) K/uL Baso # (Auto) 0.02 (0-0.2) K/uL PT 10.8 (9.0-12.0) Seconds INR 1.1 (0.9-1.1) APTT 25.8 (21.0-31.0) Seconds PTT Ratio 1.0 Sodium (136-145) mmol/L Potassium (3.5-5.1) mmol/L Chloride (98-107) mmol/L Carbon Dioxide (21-32) mmol/L Anion Gap (3-11) BUN (7-18) mg/dl Creatinine (0.6-1.2) mg/dl Est Cr Clr Drug Dosing ml/min Est GFR ( Amer) Est GFR (Non-Af Amer) BUN/Creatinine Ratio (10-20) Glucose (70-99) mg/dl Estimat Average Glucose mg/dl Hemoglobin A1c (4.5-5.6) % Calcium (8.5-10.1) mg/dl Magnesium (1.8-2.4) mg/dl Albumin (3.4-5.0) gm/dl Urine Color Yellow Urine Appearance Clear (Clear) Urine pH 5.5 (4.5-7.5) Ur Specific [place] 1.012 (1.000-1.030) Urine Protein Negative (Negative) Urine Glucose (UA) Negative (Negative) Urine Ketones Negative (Negative) Urine Blood Negative (Negative) Urine Nitrite Negative (Negative) Urine Bilirubin Negative (Negative) Urine Urobilinogen Negative (Negative) Ur Leukocyte Esterase Negative (Negative) Blood Type Antibody Screen 10/28/18 10/28/18 10/28/18 Range/Units 13:34 13:34 13:34 WBC (4.8-10.8) K/uL RBC (4.2-5.4) M/uL Hgb (12.0-16.0) g/dL Hct (37-47) % MCV (80-100) fL MCH (25-34) pg MCHC (32-36) g/dL RDW Std Deviation (36.4-46.3) fL RDW Coeff of Rowdy (11.5-14.5) % Plt Count (130-400) K/uL MPV (7.4-10.4) fL Immature Gran % (Auto) % Neut % (Auto) % Lymph % (Auto) % [place] % (Auto) % Eos % (Auto) % Baso % (Auto) % Immature Gran # (Auto) (0.00-0.02) K/uL Neut # (Auto) (1.4-6.5) K/uL Lymph # (Auto) (1.2-3.4) K/uL [place] # (Auto) (0.11-0.59) K/uL Eos # (Auto) (0-0.5) K/uL Baso # (Auto) (0-0.2) K/uL PT (9.0-12.0) Seconds INR (0.9-1.1) APTT (21.0-31.0) Seconds PTT Ratio Sodium 140 (136-145) mmol/L Potassium 3.6 (3.5-5.1) mmol/L Chloride 107 (98-107) mmol/L Carbon Dioxide 24 (21-32) mmol/L Anion Gap 9.0 (3-11) BUN 11 (7-18) mg/dl Creatinine 1.05 (0.6-1.2) mg/dl Est Cr Clr Drug Dosing 47.1 ml/min Est GFR ( Amer) 61.9 Est GFR (Non-Af Amer) 53.4 BUN/Creatinine Ratio 10.2 (10-20) Glucose 165 H (70-99) mg/dl Estimat Average Glucose 114 mg/dl Hemoglobin A1c 5.6 (4.5-5.6) % Calcium 8.9 (8.5-10.1) mg/dl Magnesium (1.8-2.4) mg/dl Albumin 3.7 (3.4-5.0) gm/dl Urine Color Urine Appearance (Clear) Urine pH (4.5-7.5) Ur Specific [place] (1.000-1.030) Urine Protein (Negative) Urine Glucose (UA) (Negative) Urine Ketones (Negative) Urine Blood (Negative) Urine Nitrite (Negative) Urine Bilirubin (Negative) Urine Urobilinogen (Negative) Ur Leukocyte Esterase (Negative) Blood Type O Positive Antibody Screen NEGATIVE 11/23/18 11/23/18 11/25/18 Range/Units 06:32 06:32 08:25 WBC 15.53 H 8.34 (4.8-10.8) K/uL RBC 4.13 L 4.39 (4.2-5.4) M/uL Hgb 13.0 13.9 (12.0-16.0) g/dL Hct 36.9 L 39.0 (37-47) % MCV 89.3 88.8 (80-100) fL MCH 31.5 31.7 (25-34) pg MCHC 35.2 35.6 (32-36) g/dL RDW Std Deviation 39.8 40.6 (36.4-46.3) fL RDW Coeff of Rowdy 12.4 12.6 (11.5-14.5) % Plt Count 227 238 (130-400) K/uL MPV 9.6 9.5 (7.4-10.4) fL Immature Gran % (Auto) % Neut % (Auto) % Lymph % (Auto) % [place] % (Auto) % Eos % (Auto) % Baso % (Auto) % Immature Gran # (Auto) (0.00-0.02) K/uL Neut # (Auto) (1.4-6.5) K/uL Lymph # (Auto) (1.2-3.4) K/uL [place] # (Auto) (0.11-0.59) K/uL Eos # (Auto) (0-0.5) K/uL Baso # (Auto) (0-0.2) K/uL PT (9.0-12.0) Seconds INR (0.9-1.1) APTT (21.0-31.0) Seconds PTT Ratio Sodium 140 (136-145) mmol/L Potassium 4.0 (3.5-5.1) mmol/L Chloride 109 H (98-107) mmol/L Carbon Dioxide 24 (21-32) mmol/L Anion Gap 7.0 (3-11) BUN 23 H (7-18) mg/dl Creatinine 1.06 (0.6-1.2) mg/dl Est Cr Clr Drug Dosing 46.4 ml/min Est GFR ( Amer) 61.2 Est GFR (Non-Af Amer) 52.8 BUN/Creatinine Ratio 21.3 H (10-20) Glucose 117 H (70-99) mg/dl Estimat Average Glucose mg/dl Hemoglobin A1c (4.5-5.6) % Calcium 8.5 (8.5-10.1) mg/dl Magnesium (1.8-2.4) mg/dl Albumin (3.4-5.0) gm/dl Urine Color Urine Appearance (Clear) Urine pH (4.5-7.5) Ur Specific [place] (1.000-1.030) Urine Protein (Negative) Urine Glucose (UA) (Negative) Urine Ketones (Negative) Urine Blood (Negative) Urine Nitrite (Negative) Urine Bilirubin (Negative) Urine Urobilinogen (Negative) Ur Leukocyte Esterase (Negative) Blood Type Antibody Screen 11/25/18 Range/Units 08:25 WBC (4.8-10.8) K/uL RBC (4.2-5.4) M/uL Hgb (12.0-16.0) g/dL Hct (37-47) % MCV (80-100) fL MCH (25-34) pg MCHC (32-36) g/dL RDW Std Deviation (36.4-46.3) fL RDW Coeff of Rowdy (11.5-14.5) % Plt Count (130-400) K/uL MPV (7.4-10.4) fL Immature Gran % (Auto) % Neut % (Auto) % Lymph % (Auto) % [place] % (Auto) % Eos % (Auto) % Baso % (Auto) % Immature Gran # (Auto) (0.00-0.02) K/uL Neut # (Auto) (1.4-6.5) K/uL Lymph # (Auto) (1.2-3.4) K/uL [place] # (Auto) (0.11-0.59) K/uL Eos # (Auto) (0-0.5) K/uL Baso # (Auto) (0-0.2) K/uL PT (9.0-12.0) Seconds INR (0.9-1.1) APTT (21.0-31.0) Seconds PTT Ratio Sodium 137 (136-145) mmol/L Potassium 3.4 L (3.5-5.1) mmol/L Chloride 103 (98-107) mmol/L Carbon Dioxide 27 (21-32) mmol/L Anion Gap 6.0 (3-11) BUN 9 (7-18) mg/dl Creatinine 0.92 (0.6-1.2) mg/dl Est Cr Clr Drug Dosing 53.5 ml/min Est GFR ( Amer) 72.6 Est GFR (Non-Af Amer) 62.6 BUN/Creatinine Ratio 10.2 (10-20) Glucose 150 H (70-99) mg/dl Estimat Average Glucose mg/dl Hemoglobin A1c (4.5-5.6) % Calcium 9.2 (8.5-10.1) mg/dl Magnesium 1.7 L (1.8-2.4) mg/dl Albumin (3.4-5.0) gm/dl Urine Color Urine Appearance (Clear) Urine pH (4.5-7.5) Ur Specific [place] (1.000-1.030) Urine Protein (Negative) Urine Glucose (UA) (Negative) Urine Ketones (Negative) Urine Blood (Negative) Urine Nitrite (Negative) Urine Bilirubin (Negative) Urine Urobilinogen (Negative) Ur Leukocyte Esterase (Negative) Blood Type Antibody Screen Total Time Total Time Spent Total Time Spent (In Minutes): 20 Discharge Plan Discharge Items Patient Disposition: Home - Home Health Services Reason For Visit: RIGHT KNEE OSTEOARTHRITIS Discharge Diagnosis: Right knee osteoarthritis Discharge Goals: Decrease discomfort and Improve function Activity: Per 'Additional Instructions' section Non-emergency contact: Surgeon Call non-emergency contact if: you have any medication questions, your pain is not controlled, your pain is concerning for you, you have a fever, your temperature is above 101.5, your wound has increased redness and your wound has increased drainage Follow-up/Referrals: Jeffrey Combs [Primary Care Provider] - Diet: Regular Addtl Provider Instructions: 1. Hypertension * Please continue to monitor blood pressure at home. * You will need to follow up with your primary care provider in 1-2 weeks to discuss blood pressure management. ACTIVITY RECOMMENDATIONS: SELF CARE INSTRUCTIONS AFTER TOTAL KNEE REPLACEMENT A. You may need to continue a physical therapy program after discharge from the hospital. There are several options available to you. Your doctor will assist you in selecting the best one for you. 1. An out-patient facility 2 to 3 times a week for therapy or home therapy. 2. Continue working on all exercises taught to you in the hospital. Your goals should be to increase bending of your knee to 90 degrees and beyond and to fully straighten your knee. B. You may progress at your own pace from walking with a walker or crutches to a cane; then to no assistive devices. C. Make walking a part of your daily routine. Be up as much as comfortable with rest periods throughout the day. Rest with leg elevation is very important. Use the ice wrap frequently for the first 3-4 weeks. D. There are no restrictions on activities. You may ride in a car, shop, participate in gate technician and all social activities. E. Wear the long elastic stockings (JELANI hose) 20 hours a day for 2 weeks after surgery. They can be removed several times a day for laundering and for a bath. F. You may shower, no tub baths until cleared by your doctor. SPECIAL CARE INSTRUCTIONS: VERY IMPORTANT TO READ AND REVIEW A. There are a few signs you need to watch for after you are home. Call [facility] if you notice any of the followin. Increased severe knee pain. Some pain is expected especially when you exercise. 2. Increased swelling in your leg or knee; pain or swelling of the calf muscle in either lower leg. 3. Any fluid drainage from the incision. 4. Shortness of breath or chest pain. B. Please call [facility] at if you have any concerns or questions about your operation or recovery. The doctor or his nurse will return your call promptly. C. You must take antibiotics before dental work, bladder, bowel or other surgery. Your doctor will provide you with a permanent care to carry describing this precaution. IMPORTANT: * REMEMBER TO TAKE ASPIRIN, 81 MG, TWICE DAILY FOR 4 WEEKS UNLESS OTHERWISE DIRECTED. THIS IS YOUR BLOOD THINNER. * HIGH RISK PATIENTS MAY BE PRESCRIBED A STRONGER BLOOD THINNER. THIS WILL BE PROVIDED AT DISCHARGE. * CALL IF INCREASED PAIN, REDNESS, DRAINAGE OR FEVER GREATER THAT 101. * WEAR JELANI HOSE 20 HOURS PER DAY FOR 2 WEEKS. This is a large suction dressing covering your incision. This will help pull any excess drainage from the wound and allow your incision to heal properly. You may shower with this if you can keep the unit outside of the shower. If any bleeding or leakage is noted please call your doctor's office. This will remain on your incision for 7 days and then should be removed. This can be done yourself or by the home nursing staff if applicable. The entire unit is disposable once removed. Once removed, keep incision clean and dry. If redness or drainage is noted, please call your surgeon. FOLLOW UP VISIT: If appointment is not already scheduled: Please call [facility] to make a follow-up appointment for 2 weeks after your surgery at . Prescriptions: New celecoxib [Celebrex] 200 mg Capsule 200 mg PO BID Qty: 60 RF: 0 aspirin [Ecotrin Low Strength] 81 mg Tablet,Delayed Release (Dr/Ec) 81 mg PO BID Qty: 60 RF: 0 acetaminophen [Pain Reliever] 500 mg Tablet 1,000 mg PO Q8 Qty: 60 RF: 0 promethazine 25 mg Tablet 25 mg PO Q8H PRN (Reason: nausea) Qty: 20 RF: 0 oxycodone 5 mg capsule 5 - 10 mg PO .Q4H-6H MDD 6 PRN (Reason: pain) Qty: 30 RF: 0 Continued levothyroxine [Synthroid] 25 mcg Tablet 25 mcg PO QAM RF: 0 rosuvastatin [Crestor] 5 mg Tablet 5 mg PO QAM RF: 0 Prilosec OTC 20 mg Tablet,Delayed Release (Dr/Ec) 20 mg PO UD PRN (Reason: Heartburn) RF: 0 multivitamin [Multiple Vitamins] Tablet 1 tab PO DAILY RF: 0 cholecalciferol (vitamin D3) [Vitamin D3] 2,000 unit Capsule 2,000 unit PO DAILY RF: 0 Discontinued ibuprofen [Motrin IB] 200 mg Tablet 400 mg PO UD PRN (Reason: Pain) RF: 0 hydrocodone-acetaminophen [Vicodin] 5-300 mg Tablet 1 - 2 tab PO UD PRN (Reason: Pain) RF: 0 Stand-Alone Forms: [facility], Opioid Pain Management Discharge Orders: Discharge Order (Routine); Ordered 11/25/18 Ordered By: Oracio Martinez Admission Data Admit Date/Time: 11/22/18 13:58 Attending Provider: Eric Schumacher Admit Provider: Eric Schumacher Primary Care Provider: Jeffrey Combs Other Providers: Aditi Bach Service: Surgical Services Other Interventions: Discharge Summary Assessment (RN) Last Done: 11/25/18 08:49 Pending Studies at Discharge: No DC Date/Time DO NOT enter until pt leaves facility: 11/25/18 11:13
== END 2018-11-25 11:13 | disposition home health service (06) | DRG 470 ==
LOC: ASU 08:35 → 3E 13:58